=== PATIENT | male | born 1975 | race Caucasian/White ===

== ENCOUNTER 2016-08-09 18:59 | Outpatient (CLI) | payer OTHER ==
[2015-08-16 09:26] VITALS: BMI 31.4
[2016-08-09 19:18] LABS: BILIRUBIN,URINE 1+ (NEGATIVE); KETONES,URINE Trace (NEGATIVE); LEUKOCYTE ESTERASE ,URINE Negative (NEGATIVE); NITRITE,URINE Negative (NEGATIVE); PROTEIN,URINE Negative (NEGATIVE); URINE, BLOOD Negative (NEGATIVE)
[2016-08-09 19:19] LABS: ADD URINE MICROSCOPIC NO
== END 2016-08-09 19:00 | disposition home or self-care (01) ==
LOC: NONPT 18:59
PROVIDERS: ATTEND Physician Assistant
DX: Z51.81 Encounter for therapeutic drug level monitoring (principal); F29 Unspecified psychosis not due to a substance or known physiological condition; R46.89 Other symptoms and signs involving appearance and behavior; R32 Unspecified urinary incontinence; Z79.899 Other long term (current) drug therapy
CPT/HCPCS: 81001

== ENCOUNTER 2016-12-15 15:20 | Outpatient (CLI) ==
[2015-08-16 09:26] VITALS: BMI 31.4
--- NOTE | 2016-12-15 15:51 | DI ---
EXAM: Right foot three view HISTORY: Right foot pain COMPARISON: None FINDINGS: No fracture or dislocation. Joint spaces are maintained. There is surgical hardware in t he distal tibia that is poorly visualized. There is osseous bridging of the distal tibia and fibula , poorly visualized. There dorsal soft tissue swelling about the forefoot. IMPERSSION: 1. No fracture or dislocation. 2. Dorsal soft tissue swelling about the forefoot
== END 2016-12-15 15:21 | disposition home or self-care (01) ==
LOC: RAD 15:20
PROVIDERS: ATTEND Physician Assistant
DX: M79.671 Pain in right foot (principal)

== ENCOUNTER 2017-03-23 16:15 | Inpatient (IN) | payer OTHER ==
[2017-03-23 17:24] LABS: BASOPHILS % (AUTO) 0.1 % (0.0-3.0); HEMATOCRIT 33.9 % (42.0-52.0); HEMOGLOBIN 11.4 g/dl (14.0-18.0); IMMATURE GRANULOCYTE % (AUTO) 0.4 % (0.0-5.0); LYMPHOCYTES # (AUTO) 3.3 K/uL (0.60-3.4); LYMPHOCYTES % (AUTO) 33.9 (10.0-50.0); MEAN CORPUSCULAR HEMOGLOBIN 31.8 pg (27.0-31.0); MEAN CORPUSCULAR HGB CONC 33.6 (31.8-35.4); MEAN CORPUSCULAR VOLUME 94.7 fl (80.0-94.0); MONOCYTES # (AUTO) 1.5 K/uL (0.4-2.0); MONOCYTES % (AUTO) 15.5 (0-10); NEUTROPHILS # (AUTO) 4.9 K/ul (2.0-6.9); NEUTROPHILS % (AUTO) 50.1; PLATELET COUNT 74 10^3/uL (140-440); RED BLOOD COUNT 3.58 10^6/ul (4.70-6.10); WHITE BLOOD COUNT 9.68 K/ul (4.2-10.2)
[2017-03-23] MEDS ORDERED: SOLU-MEDROL 125 MG IVP STA (17:51)
--- NOTE | 2017-03-23 17:55 | ED.PDOC ---
General ED Provider: Dr. DAVID NAPIER Chief Complaint: Facial Injury Stated Complaint: facial rash/edea right sided Time Seen by Physician: 16:30 (see photos) Mode of Arrival: Walk-In Information Source: Assisted Living Exam Limitations: No limitations Primary Care Provider: RON TOWNSEND Nursing and Triage Documentation Reviewed and Agree: Yes Review of Systems - Review Of Systems Constitutional: Reports: Malaise Eyes: Reports: No symptoms Ears, Nose, Mouth, Throat: Reports: No symptoms Respiratory: Reports: No symptoms Cardiac: Reports: No symptoms GI: Reports: No symptoms : Reports: No symptoms Musculoskeletal: Reports: No symptoms Skin: Reports: Rash (face see photos) Neurological: Reports: No symptoms Endocrine: Reports: No symptoms Hematologic/Lymphatic: Reports: No symptoms All Other Systems: Reviewed and Negative Past Medical History - Past Medical History Endocrine: Reports: None Cardiovascular: Reports: None Respiratory: Reports: None Hematological: Reports: None Gastrointestinal: Reports: None Genitourinary: Reports: None Neuro/Psych: Reports: None, Other (MENTAL RETARDATION) Musculoskeletal: Reports: None Cancer: Reports: None - Surgical History General Surgical History: Reports: Unknown - Family History Family History: Reports: Unknown - Social History Smoking Status: Never smoker Hx Substance Use: No Alcohol Screening: None Physical Exam - Physical Exam Appearance: Well-appearing, No pain distress, Well-nourished Eyes: YOLI, EOMI, Conjunctiva clear ENT: Ears normal, Nose normal, Oropharynx normal Respiratory: Airway patent, Breath sounds clear, Breath sounds equal, Respirations nonlabored Cardiovascular: RRR, Pulses normal, No rub, No murmur GI/: Soft, Nontender, No masses, Bowel sounds normal, No Organomegaly Musculoskeletal: Normal strength, ROM intact, No edema, No calf tenderness Skin: Warm, Dry (rash rightsided face ) Neurological: Sensation intact, Motor intact, Reflexes intact, Cranial nerves intact, Alert, Oriented Psychiatric: Affect appropriate, Mood appropriate Physician Notification - Case Discussed Physician Notified: cuco Time of Notification: 17:54 Admit To: Inpatient Critical Care Note - Critical Care Note Total Time (mins): 0 Course - Course Hematology/Chemistry: 03/23/17 17:18 Orders, Labs, Meds: Lab Review 03/23/17 17:18 WBC 9.68 RBC 3.58 L Hgb 11.4 L Hct 33.9 L MCV 94.7 H MCH 31.8 H MCHC 33.6 RDW Coeff of [place] 14.0 Plt Count 74 L Immature Gran % (Auto) 0.4 Neut % (Auto) 50.1 Lymph % (Auto) 33.9 [place] % (Auto) 15.5 H Eos % (Auto) 0.0 Baso % (Auto) 0.1 Immature Gran # (Auto) 0.0 Neut # 4.9 Lymph # 3.3 [place] # 1.5 Eos # 0.0 Baso # 0.0 Lactic Acid 17.4 Orders Category Date Time Status PLACE PATIENT OBSERVATION .TO [facility] (MONITORED BED ADMISSION 03/23/17 17: 49 Ordered ) ACTIVITY .Complete BR CARE 03/23/17 17:49 Ordered INTAKE & OUTPUT Q8HR CARE 03/23/17 17:49 Ordered TELEMETRY MONITORING TELE CARE 03/23/17 17:50 Ordered VITAL SIGNS Q8 CARE 03/23/17 17:49 Ordered BLOOD CULTURE Stat LAB 03/23/17 17:18 Ordered CBC W/ AUTO DIFF DAILY@0600 LAB 03/24/17 06:00 Ordered CBC W/ AUTO DIFF DAILY@0600 LAB 03/25/17 06:00 Ordered CBC W/ AUTO DIFF DAILY@0600 LAB 03/26/17 06:00 Ordered CBC W/ AUTO DIFF DAILY@0600 LAB 03/27/17 06:00 Ordered CBC W/ AUTO DIFF DAILY@0600 LAB 03/28/17 06:00 Ordered CBC W/ AUTO DIFF DAILY@0600 LAB 03/29/17 06:00 Ordered CBC W/ AUTO DIFF DAILY@0600 LAB 03/30/17 06:00 Ordered CBC W/ AUTO DIFF DAILY@0600 LAB 03/31/17 06:00 Ordered CBC W/ AUTO DIFF DAILY@0600 LAB 04/01/17 06:00 Ordered CBC W/ AUTO DIFF DAILY@0600 LAB 04/02/17 06:00 Ordered CBC W/ AUTO DIFF DAILY@0600 LAB 04/03/17 06:00 Ordered CBC W/ AUTO DIFF DAILY@0600 LAB 04/04/17 06:00 Ordered CBC W/ AUTO DIFF DAILY@0600 LAB 04/05/17 06:00 Ordered CBC W/ AUTO DIFF DAILY@0600 LAB 04/06/17 06:00 Ordered CBC W/ AUTO DIFF DAILY@0600 LAB 04/07/17 06:00 Ordered CBC W/ AUTO DIFF DAILY@0600 LAB 04/08/17 06:00 Ordered CBC W/ AUTO DIFF DAILY@0600 LAB 04/09/17 06:00 Ordered CBC W/ AUTO DIFF DAILY@0600 LAB 04/10/17 06:00 Ordered CBC W/ AUTO DIFF DAILY@0600 LAB 04/11/17 06:00 Ordered CBC W/ AUTO DIFF DAILY@0600 LAB 04/12/17 06:00 Ordered CBC W/ AUTO DIFF Stat LAB 03/23/17 17:18 Completed COMPREHENSIVE METABOLIC PANEL DAILY@0600 LAB 03/24/17 06:00 Ordered COMPREHENSIVE METABOLIC PANEL DAILY@0600 LAB 03/25/17 06:00 Ordered COMPREHENSIVE METABOLIC PANEL DAILY@0600 LAB 03/26/17 06:00 Ordered COMPREHENSIVE METABOLIC PANEL DAILY@0600 LAB 03/27/17 06:00 Ordered COMPREHENSIVE METABOLIC PANEL DAILY@0600 LAB 03/28/17 06:00 Ordered COMPREHENSIVE METABOLIC PANEL DAILY@0600 LAB 03/29/17 06:00 Ordered COMPREHENSIVE METABOLIC PANEL DAILY@0600 LAB 03/30/17 06:00 Ordered COMPREHENSIVE METABOLIC PANEL DAILY@0600 LAB 03/31/17 06:00 Ordered COMPREHENSIVE METABOLIC PANEL DAILY@0600 LAB 04/01/17 06:00 Ordered COMPREHENSIVE METABOLIC PANEL DAILY@0600 LAB 04/02/17 06:00 Ordered COMPREHENSIVE METABOLIC PANEL DAILY@0600 LAB 04/03/17 06:00 Ordered COMPREHENSIVE METABOLIC PANEL DAILY@0600 LAB 04/04/17 06:00 Ordered COMPREHENSIVE METABOLIC PANEL DAILY@0600 LAB 04/05/17 06:00 Ordered COMPREHENSIVE METABOLIC PANEL DAILY@0600 LAB 04/06/17 06:00 Ordered COMPREHENSIVE METABOLIC PANEL DAILY@0600 LAB 04/07/17 06:00 Ordered COMPREHENSIVE METABOLIC PANEL DAILY@0600 LAB 04/08/17 06:00 Ordered COMPREHENSIVE METABOLIC PANEL DAILY@0600 LAB 04/09/17 06:00 Ordered COMPREHENSIVE METABOLIC PANEL DAILY@0600 LAB 04/10/17 06:00 Ordered COMPREHENSIVE METABOLIC PANEL DAILY@0600 LAB 04/11/17 06:00 Ordered COMPREHENSIVE METABOLIC PANEL DAILY@0600 LAB 04/12/17 06:00 Ordered COMPREHENSIVE METABOLIC PANEL Stat LAB 03/23/17 17:18 Received LACTIC ACID Stat LAB 03/23/17 17:18 Received PROCALCITONIN Stat LAB 03/23/17 17:18 Received Ceftriaxone Sodium [Rocephin] 1 gm MEDS 03/24/17 09:00 Ordered 0.9 % Sodium Chloride [Sodium Chloride] 50 ml IV DAILY Diazepam [Valium] MEDS 03/23/17 21:00 Ordered 2 mg PO TID Divalproex Sodium [Depakote] MEDS 03/23/17 21:00 Ordered 500 mg PO BID Methylprednisolone Sod Succ/Pf [Solu-Medrol 125 mg] MEDS 03/23/17 17:51 Stat 80 mg IVP ONCE STA Sodium Chloride 0.9% [Sodium Chloride] 1,000 ml MEDS 03/23/17 18:00 Ordered IV 75 mls/hr Vancomycin HCl [Vancomycin] 1 gm MEDS 03/24/17 09:00 Ordered 0.9 % Sodium Chloride [Sodium Chloride] [address] HEAD W/O CONTRAST Stat RADS 03/23/17 17:[address] MAXILLOFACIAL W/O CONTRAST Stat RADS 03/23/17 17:30 Ordered Medications Generic Name Dose Route Start Last Admin Trade Name Freq PRN Reason Stop Dose Admin Diazepam 2 mg 03/23/17 21:00 Valium PO TID FILOMENA Divalproex Sodium 500 mg 03/23/17 21:00 Depakote PO BID FILOMENA Ceftriaxone Sodium 1 gm/ 50 mls @ 75 mls/hr 03/24/17 09:00 Sodium Chloride IV DAILY FILOMENA Sodium Chloride 1,000 mls @ 75 mls/hr 03/23/17 18:00 Sodium Chloride IV .[id number] FILOMENA Vancomycin HCl 1 gm/ Sodium 250 mls @ 250 mls/hr 03/24/17 09:00 Chloride IV DAILY FILOMENA Discontinued Medications Generic Name Dose Route Start Last Admin Trade Name Freq PRN Reason Stop Dose Admin Methylprednisolone Sodium Succinate 80 mg 03/23/17 17:51 Solu-Medrol 125 Mg IVP 03/23/17 17:52 ONCE STA Vital Signs: Temp Pulse Resp BP Pulse Ox 03/23/17 16:23 98.5 F 112 H 24 122/83 98 Departure - Departure Time of Disposition: 17:55 Disposition: ADMITTED INPATIENT Discharge Problem: Cellulitis of face Instructions: Cellulitis (ED) Condition: Good Pt referred to PMD for follow-up: Yes Allergies/Adverse Reactions: Allergies No Known Allergies Allergy (Verified 03/23/17 16:26) Home Medications: Ambulatory Orders Citalopram Hydrobromide [Celexa] 20 mg PO DAILY 03/31/15 Divalproex Sodium 500 mg PO BID 03/31/15 Docusate Sodium [Colace] 200 mg PO BEDTIME 03/31/15 Ranitidine HCl [Zantac] 150 mg PO BID 03/31/15 Benztropine Mesylate 0.5 mg PO BID 03/23/17 Diazepam [Valium] 2 mg PO TID 03/23/17 Ziprasidone HCl [Geodon] 40 mg PO BID 03/23/17
--- NOTE | 2017-03-23 18:14 | CT ---
Exam: CT brain without contrast Clinical indication: Headache. Comparison: 09/17/2012. TECHNIQUE: Axial unenhanced CT images from the skull base through the brain were obtained. Coronal and sagital reformats were performed. Findings: There is no evidence of intra or extra-axial hemorrhage. There is motion artifact hindering accurate assessment of fine detail.There is no evidence of mass, infarct or midline shift. The ventricles and basilar cisterns are within normal limits. There are soft tissue changes within the right maxillary sinus suggesting chronic maxillary sinusiti s. The remainder of the visualized paranasal sinuses and mastoid air cells are clear. The visualized bony structures are unremarkable. Impression: 1. No definite acute intracranial abnormality. 2. Findings suggest chronic right maxillary sinusitis.
--- NOTE | 2017-03-23 18:21 | CT ---
Exam: CT maxillofacial/paranasal sinuses. linical indication: Redness to right hand with pain. TECHNIQUE: Axial unenhanced CT images through the facial bones/paranasal sinus region were obtained followed by coronal and sagittal reformats. Findings: The mandible is intact. The temporomandibular joints are properly situated. The bilateral pterygoid plates are intact. The maxilla is intact. The bilateral orbital rims are intact. The bilateral zygomatic arches are i ntact. The visualized portions of the cranial vault are intact. There is mucosal thickening involving the right maxillary sinus suggesting chronic right maxillary s inusitis. Otherwise, the paranasal sinuses and mastoid air cells are clear. There is soft tissue swelling on the right face near the right orbit. This could represent periorbi sindhu cellulitis. There is no evidence of orbital cellulitis. Otherwise, the visualized soft tissues are grossly unremarkable. Impression: 1. No acute facial fracture. 2. No evidence of orbital cellulitis. 3. Soft tissue swelling within the vicinity of the right thigh suggesting periorbital cellulitis. 4. Right maxillary chronic sinusitis.
[2017-03-23 18:29] LABS: ALBUMIN/GLOBULIN RATIO 0.77; ANION GAP 20.9; BILIRUBIN,TOTAL 0.6 mg/dL (0.00-1.20); BUN/CREATININE RATIO 16.21; CREATININE 0.74 mg/dL (0.60-1.10); POTASSIUM 3.9 mmol/L (3.5-5.1); TOTAL PROTEIN 6.9 g/dL (6.4-8.2)
[2017-03-23 21:46] VITALS: BMI 24.7
[2017-03-23] MEDS ORDERED: DEPAKOTE ONE (22:43)
[2017-03-23] MEDS: VALIUM PO SCH (22:48)
[2017-03-23] MEDS: DEPAKOTE PO SCH (23:07)
[2017-03-24 06:07] LABS: BASOPHILS % (AUTO) 0.1 % (0.0-3.0); HEMATOCRIT 32.8 % (42.0-52.0); HEMOGLOBIN 11.1 g/dl (14.0-18.0); IMMATURE GRANULOCYTE % (AUTO) 0.4 % (0.0-5.0); LYMPHOCYTES # (AUTO) 1.9 K/uL (0.60-3.4); MEAN CORPUSCULAR HEMOGLOBIN 31.3 pg (27.0-31.0); MEAN CORPUSCULAR HGB CONC 33.8 (31.8-35.4); MEAN CORPUSCULAR VOLUME 92.4 fl (80.0-94.0); MONOCYTES # (AUTO) 0.6 K/uL (0.4-2.0); MONOCYTES % (AUTO) 6.7 (0-10); NEUTROPHILS # (AUTO) 6.5 K/ul (2.0-6.9); NEUTROPHILS % (AUTO) 71.8; PLATELET COUNT 73 10^3/uL (140-440); RED BLOOD COUNT 3.55 10^6/ul (4.70-6.10); WHITE BLOOD COUNT 9.08 K/ul (4.2-10.2)
[2017-03-24 06:27] LABS: ALBUMIN 2.7 g/dL (3.4-5.0); ALBUMIN/GLOBULIN RATIO 0.73; ANION GAP 16.5; BILIRUBIN,TOTAL 0.46 mg/dL (0.00-1.20); BUN/CREATININE RATIO 30.76; CALCIUM 9.3 mg/dL (8.2-10.2); CREATININE 0.52 mg/dL (0.60-1.10); POTASSIUM 4.5 mmol/L (3.5-5.1); TOTAL PROTEIN 6.4 g/dL (6.4-8.2)
[2017-03-24] MEDS: SODIUM CHLORIDE 1,000 ML IV SCH (06:27)
[2017-03-24] MEDS: VALIUM PO SCH ×5 (08:49→21:17)
[2017-03-24] MEDS: DEPAKOTE PO SCH ×4 (08:49→21:16)
[2017-03-24] MEDS: ROCEPHIN 1 GM in SODIUM CHLORIDE 50 ML IV SCH (08:53)
[2017-03-24] MEDS ORDERED: VANCOMYCIN 1 GM in SODIUM CHLORIDE 250 ML IV SCH (09:00)
[2017-03-24] MEDS ORDERED: VANCOMYCIN 1.5 GM in SODIUM CHLORIDE 500 ML IV SCH (09:00)
[2017-03-24] MEDS: VANCOMYCIN 1.5 GM in SODIUM CHLORIDE 500 ML IV SCH ×2 (10:20→20:43)
[2017-03-24] MEDS: CELEXA PO SCH (17:17)
[2017-03-24] MEDS ORDERED: ZANTAC ONE (20:01)
[2017-03-24] MEDS ORDERED: COGENTIN ONE ×2 (20:01→20:47)
[2017-03-24] MEDS: ZANTAC PO SCH ×3 (20:40→21:17)
[2017-03-24] MEDS: COLACE PO SCH ×3 (20:40→21:16)
[2017-03-24] MEDS: ZIPRASIDONE HCL 40 MG PO SCH ×3 (20:41→21:17)
[2017-03-24] MEDS: BENZTROPINE MESYLATE 0.5 MG PO SCH ×3 (20:41→21:16)
[2017-03-25] MEDS: SODIUM CHLORIDE 1,000 ML IV SCH ×2 (02:29→14:49)
[2017-03-25 07:19] LABS: BASOPHILS % (AUTO) 0.2 % (0.0-3.0); HEMATOCRIT 30.9 % (42.0-52.0); HEMOGLOBIN 10.5 g/dl (14.0-18.0); IMMATURE GRANULOCYTE % (AUTO) 0.5 % (0.0-5.0); LYMPHOCYTES # (AUTO) 2.8 K/uL (0.60-3.4); LYMPHOCYTES % (AUTO) 31.6 (10.0-50.0); MEAN CORPUSCULAR HEMOGLOBIN 31.3 pg (27.0-31.0); MEAN CORPUSCULAR VOLUME 92.2 fl (80.0-94.0); MONOCYTES % (AUTO) 11.3 (0-10); NEUTROPHILS # (AUTO) 4.9 K/ul (2.0-6.9); NEUTROPHILS % (AUTO) 56.4; PLATELET COUNT 68 10^3/uL (140-440); RED BLOOD COUNT 3.35 10^6/ul (4.70-6.10); WHITE BLOOD COUNT 8.74 K/ul (4.2-10.2)
[2017-03-25 07:35] LABS: ALBUMIN 2.7 g/dL (3.4-5.0); ALBUMIN/GLOBULIN RATIO 0.77; ANION GAP 14.1; BILIRUBIN,TOTAL 0.49 mg/dL (0.00-1.20); BUN/CREATININE RATIO 15.87; CALCIUM 8.8 mg/dL (8.2-10.2); CREATININE 0.63 mg/dL (0.60-1.10); POTASSIUM 4.1 mmol/L (3.5-5.1); TOTAL PROTEIN 6.2 g/dL (6.4-8.2)
[2017-03-25] MEDS: ZANTAC PO SCH ×2 (09:30→17:55)
[2017-03-25] MEDS: DEPAKOTE PO SCH ×2 (09:30→20:47)
[2017-03-25] MEDS: ROCEPHIN 1 GM in SODIUM CHLORIDE 50 ML IV SCH (09:30)
[2017-03-25] MEDS: COGENTIN PO SCH ×2 (09:31→20:49)
[2017-03-25] MEDS: CELEXA PO SCH (09:31)
[2017-03-25] MEDS: ZIPRASIDONE HCL 40 MG PO SCH ×2 (10:26→21:27)
[2017-03-25] MEDS: VANCOMYCIN 1.5 GM in SODIUM CHLORIDE 500 ML IV SCH ×2 (10:26→20:46)
[2017-03-25] MEDS: VALIUM PO SCH ×3 (10:27→20:47)
[2017-03-25] MEDS ORDERED: TOBREX 0.3% OP ONE (11:25)
[2017-03-25] MEDS ORDERED: SOLU-MEDROL 40 MG IVP STA (12:07)
[2017-03-25] MEDS: TOBREX 0.3% OP SCH ×3 (14:48→20:49)
[2017-03-25] MEDS: COLACE PO SCH (20:47)
[2017-03-26] MEDS: TOBREX 0.3% OP SCH ×6 (02:28→20:41)
[2017-03-26] MEDS: ZANTAC PO SCH ×2 (05:42→16:09)
[2017-03-26 08:54] LABS: BASOPHILS % (AUTO) 0.2 % (0.0-3.0); HEMATOCRIT 31.3 % (42.0-52.0); HEMOGLOBIN 10.7 g/dl (14.0-18.0); IMMATURE GRANULOCYTE % (AUTO) 0.3 % (0.0-5.0); LYMPHOCYTES # (AUTO) 2.2 K/uL (0.60-3.4); LYMPHOCYTES % (AUTO) 34.6 (10.0-50.0); MEAN CORPUSCULAR HEMOGLOBIN 31.8 pg (27.0-31.0); MEAN CORPUSCULAR HGB CONC 34.2 (31.8-35.4); MEAN CORPUSCULAR VOLUME 93.2 fl (80.0-94.0); MONOCYTES # (AUTO) 0.5 K/uL (0.4-2.0); MONOCYTES % (AUTO) 7.7 (0-10); NEUTROPHILS # (AUTO) 3.6 K/ul (2.0-6.9); NEUTROPHILS % (AUTO) 57.2; PLATELET COUNT 76 10^3/uL (140-440); RED BLOOD COUNT 3.36 10^6/ul (4.70-6.10); WHITE BLOOD COUNT 6.36 K/ul (4.2-10.2)
[2017-03-26] MEDS: ROCEPHIN 1 GM in SODIUM CHLORIDE 50 ML IV SCH (09:00)
[2017-03-26] MEDS: COGENTIN PO SCH ×2 (09:00→20:46)
[2017-03-26] MEDS: CELEXA PO SCH (09:00)
[2017-03-26] MEDS: VALIUM PO SCH ×3 (09:01→20:46)
[2017-03-26] MEDS: DEPAKOTE PO SCH ×2 (09:01→20:45)
[2017-03-26] MEDS: ZIPRASIDONE HCL 40 MG PO SCH ×2 (09:10→20:45)
[2017-03-26 09:38] LABS: ALBUMIN 2.5 g/dL (3.4-5.0); ALBUMIN/GLOBULIN RATIO 0.71; ANION GAP 14.8; BILIRUBIN,TOTAL 0.36 mg/dL (0.00-1.20); BUN/CREATININE RATIO 17.74; CALCIUM 8.9 mg/dL (8.2-10.2); CREATININE 0.62 mg/dL (0.60-1.10); POTASSIUM 3.8 mmol/L (3.5-5.1)
[2017-03-26 17:45] VITALS: TEMP 98.2
[2017-03-26] MEDS: VANCOMYCIN 1 GM in SODIUM CHLORIDE 250 ML IV SCH (20:41)
[2017-03-26] MEDS: COLACE PO SCH (20:45)
[2017-03-27] MEDS: SODIUM CHLORIDE 1,000 ML IV SCH ×2 (02:30→08:35)
[2017-03-27] MEDS: TOBREX 0.3% OP SCH ×4 (02:51→12:00)
[2017-03-27] MEDS: ZANTAC PO SCH (05:56)
[2017-03-27 06:16] VITALS: BP 124/71
[2017-03-27 06:49] LABS: BASOPHILS % (AUTO) 0.5 % (0.0-3.0); EOSINOPHILS % (AUTO) 0.2 % (0.0-7.0); HEMOGLOBIN 10.7 g/dl (14.0-18.0); IMMATURE GRANULOCYTE % (AUTO) 0.3 % (0.0-5.0); LYMPHOCYTES # (AUTO) 3.3 K/uL (0.60-3.4); LYMPHOCYTES % (AUTO) 52.4 (10.0-50.0); MEAN CORPUSCULAR HEMOGLOBIN 31.6 pg (27.0-31.0); MEAN CORPUSCULAR HGB CONC 33.4 (31.8-35.4); MEAN CORPUSCULAR VOLUME 94.4 fl (80.0-94.0); MONOCYTES # (AUTO) 0.6 K/uL (0.4-2.0); MONOCYTES % (AUTO) 9.1 (0-10); NEUTROPHILS # (AUTO) 2.4 K/ul (2.0-6.9); NEUTROPHILS % (AUTO) 37.5; PLATELET COUNT 93 10^3/uL (140-440); RED BLOOD COUNT 3.39 10^6/ul (4.70-6.10); WHITE BLOOD COUNT 6.38 K/ul (4.2-10.2)
[2017-03-27 07:05] LABS: ALBUMIN 2.4 g/dL (3.4-5.0); ALBUMIN/GLOBULIN RATIO 0.71; ANION GAP 16.4; BILIRUBIN,TOTAL 0.31 mg/dL (0.00-1.20); BUN/CREATININE RATIO 17.74; CALCIUM 8.9 mg/dL (8.2-10.2); CREATININE 0.62 mg/dL (0.60-1.10); POTASSIUM 4.4 mmol/L (3.5-5.1); TOTAL PROTEIN 5.8 g/dL (6.4-8.2)
[2017-03-27] MEDS: VANCOMYCIN 1.5 GM in SODIUM CHLORIDE 500 ML IV SCH (08:34)
[2017-03-27] MEDS: CELEXA PO SCH (08:50)
[2017-03-27] MEDS: VANCOMYCIN 1 GM in SODIUM CHLORIDE 250 ML IV SCH (08:51)
[2017-03-27] MEDS: COGENTIN PO SCH (08:51)
[2017-03-27] MEDS: DEPAKOTE PO SCH (08:51)
[2017-03-27] MEDS: VALIUM PO SCH (08:51)
[2017-03-27] MEDS: ZIPRASIDONE HCL 40 MG PO SCH (08:59)
--- NOTE | 2017-03-27 11:36 | HP ---
DATE OF SERVICE: 03/23/17 - The patient is seen and examined in the emergency room with Dr. Uriostegui. CHIEF COMPLAINT: Right-sided facial pain and redness. HISTORY OF PRESENT ILLNESS: This is a 42-year-old male with developmental delay and lives at the [facility], went to see PMD, Nemo Curtis for right facial cellulitis and redness. The patient was sent here for evaluation. The patient's right side of face is red, swelling mainly around the right eye and right upper jaw. At that time, the patient was brought to the emergency room. White count was normal. In view of the facial cellulitis, redness, the patient was admitted to the hospital for IV antibiotics and treatment. REVIEW OF SYSTEMS: (difficult to obtain from patient because of the patient's condition and was obtained from the patient's helpers) CONSTITUTIONAL: No fever, no chills. HEENT: Right facial swelling and redness. Right eye with matting and drainage. ENDOCRINE: No weight gain; no weight loss. CVS: No chest pain. No PND, no orthopnea. No shortness of breath. No PND, no orthopnea. RESPIRATORY: No cough, no congestion. No hemoptysis. GI: No nausea, no vomiting. No abdominal pain. No melena. : No hematuria. No polyuria. MUSCULOSKELETAL: No joint swelling. PSYCHIATRIC: Not anxious. No depression. No suicidal thoughts. No homicidal thoughts. SKIN: Intact, no open lesions. PAST MEDICAL HISTORY: 1. Aphasia 2. Allergic rhinitis 3. GERD 4. Osteoarthritis 5. Anxiety 6. Developmental delay 7. Congenital anomalies PAST SURGICAL HISTORY: 1. Fracture left index finger 2. Bilateral inguinal hernia repair 3. Lap holley 4. 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 No smoking. No illicit drug use. No alcohol use. FAMILY HISTORY: Not significant. MEDICATIONS: (At [facility]) 1. Colace 2. Zantac 3. Divalproex 4. Celexa 5. Valium 6. Geodon 7. Benztropine ALLERGIES: NKDA PHYSICAL EXAMINATION: V/S: BP 122/83, respiratory rate 24, heart rate 112, temperature 98.5, saturation 98. Right facial redness, swelling with right upper eyelid and lower eyelid is swollen. Tenderness to touch. HEENT: Atraumatic, normocephalic. No scleral icterus. NECK: Supple. No JVD, no bruit. No lymphadenopathy. No thyromegaly. HEART: S1, S2 normal. No murmur. No cyanosis or clubbing. No ascites. LUNGS: Clear to auscultation. No rales or rhonchi. ABDOMEN: Soft, nontender. Bowel sounds are active. No CVA tenderness. No rigidity or guarding. EXTREMITIES: No cyanosis, clubbing or pedal edema. MUSCULOSKELETAL: Normal joints, no swelling. NEUROLOGIC: The patient is awake, alert, not oriented, does not communicate. SKIN: Intact; no open lesions. LYMPHATIC: No lymph nodes palpable. LABS: Sodium 141, potassium 3.9, chloride 108, bicarb 16, BUN 12, creatinine 0.74. White count 9.68, hemoglobin 11.4, hematocrit 33.9, platelet count 74. ASSESSMENT: 1. RIGHT FACIAL CELLULITIS 2. THROMBOCYTOPENIA 3. ANXIETY 4. DEVELOPMENTAL DELAY 5. HISTORY OF SEIZURE DISORDER 6. DEPRESSION PLAN: 1. Admit the patient to the regular floor. 2. Continue the home medication, Rocephin and Vancomycin daily. 3. I will follow with the patient in daily rounds. TIME SPENT: MORE THAN 70 minutes MTDD
--- NOTE | 2017-03-27 11:55 | PN ---
DATE OF SERVICE: 03/24/17 SUBJECTIVE: Admitted with right facial cellulitis and has been on antibiotics. The patient has very much anxiety when a new person approaches and he gets really restless. He does not communicate well. Pain and redness is better. Did not urinate so far after admission. REVIEW OF SYSTEMS: CONSTITUTIONAL: No fever, no chills. HEENT: Right facial swelling and redness. Right eye matting and drainage. ENDOCRINE: No weight gain, no weight loss. CVS: No angina symptoms. No CHF symptoms. No palpitations. No atypical chest pain for CAD. No shortness of breath. No PND, no orthopnea. RESPIRATORY: No cough, no hemoptysis. GI: No nausea, no vomiting. No abdominal pain. : No hematuria. No polyuria. MUSCULOSKELETAL:. No joint swelling. PSYCHIATRIC: Anxious. No depression. No suicidal thoughts. No homicidal thoughts. SKIN: Intact. No rash. PHYSICAL EXAMINATION: V/S: BP 115/74, respiratory rate 24, heart rate 86, temperature 98.5. HEENT: Normocephalic, atraumatic. Mucosa dry, pallor positive. No icterus. Right facial redness. Swelling is better. Some tenderness. The patient does wince when I touch face. NECK: Supple. No JVD, no carotid bruit. No lymphadenopathy. LUNGS: Clear to auscultation. No rales or rhonchi. HEART: S1, S2 normal. No S3. No murmur, gallop or regurgitation. ABDOMEN: Soft, nontender. Bowel sounds active. No rigidity. No rebound or guarding. No CVA tenderness. EXTREMITIES: No clubbing, cyanosis or pedal edema. MUSCULOSKELETAL: No joint swelling. NEUROLOGIC: Awake, alert, moving all four extremities. Does not communicate secondary to aphasia. LYMPHATIC: No lymph nodes palpable. SKIN: Intact. LABS: White count is 9.08, hemoglobin 11.1, hematocrit 32.8, platelet count 73. Sodium 142, potassium 4.5, chloride 106, bicarb 24, BUN 16, creatinine 0.52, glucose 148. ASSESSMENT: 1. Right facial cellulitis 2. Anemia 3. Developmental delay 4. Seizure disorder 5. Anxiety PLAN: 1. Continue Vancomycin and Rocephin 2. Will change admission to Regular admission as the patient still has persistent redness and swelling of the face, which will need further antibiotic treatment. TIME SPENT: More than 30 minutes MTDD
[2017-03-27] MEDS: ROCEPHIN 1 GM in SODIUM CHLORIDE 50 ML IV SCH (11:58)
[2017-03-27] MEDS ORDERED: HUMALOG SUBCUT PRN (12:30)
--- NOTE | 2017-03-27 12:37 | PN ---
DATE OF SERVICE: 03/26/17 SUBJECTIVE: Admitted with right-sided facial cellulitis and redness. The patient has extreme anxiety and is scared of strangers. Redness is better but still has puffiness around right side of face, matting of right eye. No fever, no chills. The patient's caregiver is in the room. REVIEW OF SYSTEMS: CONSTITUTIONAL: No fever, no chills. HEENT: Right facial swelling is still there; redness is better. Right eye matting. ENDOCRINE: No weight gain, no weight loss. CVS: No angina symptoms. No CHF symptoms. No palpitations. No atypical chest pain for CAD. No shortness of breath. No PND, no orthopnea. RESPIRATORY: No cough, no hemoptysis. GI: No nausea, no vomiting. No abdominal pain. : No hematuria. No polyuria. MUSCULOSKELETAL:. No joint swelling. PSYCHIATRIC: Anxious. No depression. No suicidal thoughts. No homicidal thoughts. SKIN: Intact. No rash. PHYSICAL EXAMINATION: V/S: BP 118/73, respiratory rate 20, heart rate 82, temperature 97.0. HEENT: Normocephalic, atraumatic. Right eye matted with redness. Right maxillary area puffiness is present; no redness. Tender to touch. NECK: Supple. No JVD, no carotid bruit. No lymphadenopathy. LUNGS: Clear to auscultation. No rales or rhonchi. HEART: S1, S2 normal. No S3. No murmur, gallop or regurgitation. ABDOMEN: Soft, nontender. Bowel sounds active. No rigidity. No rebound or guarding. No CVA tenderness. EXTREMITIES: No clubbing, cyanosis or pedal edema. MUSCULOSKELETAL: No joint swelling. NEUROLOGIC: Awake, alert but does not respond to communication as patient has developmental delay and aphasia. LYMPHATIC: No lymph nodes palpable. SKIN: Intact. LABS: White count 3.36, hemoglobin 10.7, hematocrit 31.3, platelet count 76. Sodium 145, potassium 3.8, chloride 109, bicarb 25, BUN 11, creatinine 0.62. ASSESSMENT: 1. RIGHT FACIAL CELLULITIS 2. RIGHT CONJUNCTIVITIS 3. HISTORY OF SEIZURE DISORDER 4. DEVELOPMENTAL DELAY 5. APHASIA 6. ANEMIA 7. THROMBOCYTOPENIA PLAN: 1. Continue Vancomycin and Rocephin 2. Eyedrops 3. Daily I & O's TIME SPENT: More than 35 minutes today ROSEY
--- NOTE | 2017-03-27 13:50 | PN ---
DATE OF SERVICE: 03/25/17 SUBJECTIVE: This patient was admitted with right-sided facial cellulitis and right acute conjuncitivis. Swelling, redness and pain is a little better. The patient has very much high anxiety level and not to be touched by many people at the facility. The workers from [employer] are helping us. REVIEW OF SYSTEMS: CONSTITUTIONAL: No fever, no chills. HEENT: Right-sided facial cellulitis and right eye conjunctivitis, swelling, redness and pain is a little better. ENDOCRINE: No weight gain, no weight loss. CVS: No angina symptoms. No CHF symptoms. No palpitations. No atypical chest pain for CAD. No shortness of breath. No PND, no orthopnea. RESPIRATORY: No cough, no hemoptysis. GI: No nausea, no vomiting. No abdominal pain. : No hematuria. No polyuria. MUSCULOSKELETAL:. No joint swelling. PSYCHIATRIC: Anxious. No depression. No suicidal thoughts. No homicidal thoughts. SKIN: Intact. No rash. PHYSICAL EXAMINATION: V/S: BP 112/70, respiratory rate 20, heart rate 82, temperature 97.0. HEENT: Normocephalic, atraumatic. Mucosa dry. Right eye tenderness and crust present on the eyelids. Swelling and redness is decreased on the upper part of the right maxillary area of the face. Some tenderness is present. He doesn't want me to touch the area. NECK: Supple. No JVD, no carotid bruit. No lymphadenopathy. LUNGS: Clear to auscultation. No rales or rhonchi. HEART: S1, S2 normal. No S3. No murmur, gallop or regurgitation. ABDOMEN: Soft, nontender. Bowel sounds active. No rigidity. No rebound or guarding. No CVA tenderness. EXTREMITIES: No clubbing, cyanosis or pedal edema. MUSCULOSKELETAL: No joint swelling. NEUROLOGIC: Awake, alert, oriented times three. He does not talk. LYMPHATIC: No lymph nodes palpable. SKIN: Intact. LABS: White count 8.74, hemoglobin 10.5, hematocrit 30.9, platelet count 68. Sodium 142, potassium 4.1, chloride 109, bicarb 23, BUN 10, creatinine 0.63. ASSESSMENT: 1. RIGHT FACIAL CELLULITIS/CONJUNCTIVITIS 2. THROMBOCYTOPENIA 3. ANEMIA 4. DEVELOPMENTAL DELAY 5. ANXIETY PLAN: 1. Continue Rocephin and Vancomycin 2. Neomycin, Polymyxin B eyedrops 3. Out of bed to chair 4. Activity as tolerated TIME SPENT: More than 30 minutes MTDD
--- NOTE | 2017-04-10 15:04 | DS ---
DATE OF SERVICE: 03/27/17 FINAL DIAGNOSIS: 1. Right facial cellulitis 2. Redness of the right periorbital cellulitis 3. Right maxillary chronic sinusitis 4. Acute conjunctivitis of the right eye. 5. Developmental delay 6. Legally blind 7. History of fractured tibia and fibula 8. Status post Cholecystectomy 9. Multiple congenital anomalies 10.Anemia, stable DISCHARGE INSTRUCTIONS: Discharge the patient back to the [facility]. Return to see Family Care Provider as soon as possible. Drink lots of water and given Probiotics and yogurt. Continue rest of the home medications. MEDICATIONS AT DISCHARGE: Benztropine Mesylate 0.5mg PO three times a day Celexa 20mg Po daily Valium 2mg PO three times a day Divalproex 500mg PO twice a day Colace 100mg 200mg at bedtime Zantac 150mg twice a day Geodon 40mg twice a day NEW PRESCRIPTIONS: Clindamycin 300mg twice a day for three more days. DIET INSTRUCTIONS: Cardiac and healthy and diabetic diet ACTIVITY: Can participate in the activity at the [facility] SMOKING: Never Smoker DISEASE SPECIFIC EDUCATION: Risk of the right sided facial infection and the brain infection been discussed Antibiotic use and diarrhea been discussed. HOSPITAL COURSE: Jose Hurtado who is a 42 year old male, developmentally delayed came to the Emergency Room and seen by Dr. Uriostegui for the right sided facial cellulitis and the redness and the periorbital cellulitis. The patient was admitted to the hospital and started on the Rocephin and Vancomycin. Hgb was 11.4 which has been stable. CT did not show any cavernous sinus thrombosis or any orbital cellulitis. It was showing just the right periorbital cellulitis and the right cheek inflammation. Gradually the redness and the swelling was getting better. The patient has very much anxiety issue and he doesn't want to be talking to anyone. Very timid. The patient's caregivers were in the hospital and they were helping us a lot. Meanwhile the redness and swelling and pain was getting better. The patient did not have any complication while during the hospital stay. Vancomycin Trough levels being followed. As patient's redness and the patient did get eye drops for the conjunctivitis of the right eye. Gradually both the swelling, redness and cellulitis and the conjunctivitis all got resolved, did not have any problem. Finally sent the patient to [facility]. TIME SPENT: MORE THAN 60 MINUTES MTDD
== END 2017-03-27 13:07 | disposition other institution (70) | DRG 122 ==
LOC: ED 16:15 → MEDSURG B 18:23 → OBSVTOIN 03-24 18:00
PROVIDERS: ADMIT Emergency Medicine; ATTEND Emergency Medicine
DX: H05.011 Cellulitis of right orbit (principal); L54 Erythema in diseases classified elsewhere; J32.0 Chronic maxillary sinusitis; H10.31 Unspecified acute conjunctivitis, right eye; F79 Unspecified intellectual disabilities; F81.9 Developmental disorder of scholastic skills, unspecified; F80.2 Mixed receptive-expressive language disorder; D69.6 Thrombocytopenia, unspecified; D64.9 Anemia, unspecified; Q89.9 Congenital malformation, unspecified; F41.8 Other specified anxiety disorders; G40.909 Epilepsy, unspecified, not intractable, without status epilepticus; H54.8 Legal blindness, as defined in USA; R21 Rash and other nonspecific skin eruption; Z87.81 Personal history of (healed) traumatic fracture; Z79.899 Other long term (current) drug therapy
CPT/HCPCS: 36415; 80053; 80202; 83605; 84145; 85025; 87040; 87081; 96375; 99284

== ENCOUNTER 2017-07-02 12:08 | Outpatient (CLI) ==
[2017-07-02 12:17] LABS: ANISOCYTOSIS NOT PRESENT (NOT PRESENT)
[2017-07-02 12:36] LABS: HEMATOCRIT 35.9 % (42.0-52.0); HEMOGLOBIN 11.9 g/dl (14.0-18.0); MEAN CORPUSCULAR HEMOGLOBIN 32.1 pg (27.0-31.0); MEAN CORPUSCULAR HGB CONC 33.1 (31.8-35.4); MEAN CORPUSCULAR VOLUME 96.8 fl (80.0-94.0); PLATELET COUNT 98 10^3/uL (140-440); RED BLOOD COUNT 3.71 10^6/ul (4.70-6.10); WHITE BLOOD COUNT 6.84 K/ul (4.2-10.2)
[2017-07-03 07:24] LABS: RAPID PLASMA REAGIN Non Reactive (Non Reactive)
== END 2017-07-02 12:09 | disposition home or self-care (01) ==
LOC: LAB 12:08
PROVIDERS: ATTEND Physician Assistant
DX: D64.9 Anemia, unspecified (principal); R63.4 Abnormal weight loss
CPT/HCPCS: 36415; 82607; 82746; 83540; 83550; 84436; 84443; 85007; 85027; 86592

== ENCOUNTER 2017-07-03 11:14 | Outpatient (CLI) ==
--- NOTE | 2017-07-03 12:05 | DI ---
EXAM: PA and lateral views of the chest HISTORY: Anemia COMPARISON: None FINDINGS: The cardiomediastinal silhouette is normal. There is no pneumothorax or pleural effusion. There is no consolidation, nodule or mass. The osseous structures are unremarkable. There is surgi juliana clips noted in the right upper quadrant. IMPRESSION: No acute cardiopulmonary process
--- NOTE | 2017-07-03 12:24 | CT ---
EXAM: CT abdomen pelvis without contrast HISTORY: Weight loss COMPARISON: None TECHNIQUE: Serial axial images of the abdomen pelvis were performed from the lung bases through the inferior pelvis without contrast. These were viewed in multiple planes. FINDINGS: Lung bases are clear. Evaluation is limited due to lack of contrast. The liver is unremarkable. The gallbladder has been resected. The adrenal glands are unremarkable. The kidneys are unremarkable. The spleen is normal. The pancreas is normal. The stomach is mildly distended. Small bowel in the abdomen pelvis demonstrates few scattered distended loops of small bowel with flui d that measure within the upper limits of normal for size. The colon it is unremarkable. The append ix is normal. The urinary bladder is large and distended. There is no layering stone or visualized mass. There is no free air or free fluid in the abdomen or pelvis. The osseous structures demonstrat e mild degenerative disease. IMPRESSION: 1. No acute intra-abdominal or pelvic process to account for patient's symptoms. 2. Large distended urinary bladder with no visualized obstruction. 3. Scattered fluid-filled loops of small bowel are within normal limits for size and may represent n ormal distension versus minimal enteritis.
== END 2017-07-03 11:15 | disposition home or self-care (01) ==
LOC: RAD 11:14
PROVIDERS: ATTEND Physician Assistant
DX: D64.9 Anemia, unspecified (principal); R63.4 Abnormal weight loss

== ENCOUNTER 2017-10-01 17:55 | Emergency (ER) ==
[2017-10-01 18:00] VITALS: BP 150/81; TEMP 97.1; BMI 21.1
--- NOTE | 2017-10-01 18:44 | ED.PDOC ---
General ED Provider: Dr. DAVID NAPIER Chief Complaint: Foot Pain/Injury Stated Complaint: FOOT PAIN LEFT Time Seen by Physician: 18:00 Mode of Arrival: Walk-In Information Source: Other Exam Limitations: No limitations Primary Care Provider: RON TWONSEND Nursing and Triage Documentation Reviewed and Agree: Yes Reviewed sepsis parameters & appropriate labs ordered?: Yes System Inflammatory Response Syndrome: Not Applicable Sepsis Protocol: For patient's 13 years and over: Temp is 96.8 and below OR 101 and greater Pulse >90 BPM Resp >20/minute Acutely Altered Mental Status Are patient's symptoms suggestive of a new infection, such as: -Pneumonia -Skin, Soft Tissue -Endocarditis -UTI -Bone, Joint Infection -Implantable Device -Acute Abdominal Infection -Wound Infection -Meningitis -Blood Stream Catheter Infection -Unknown System Inflammatory Response Syndrome: Not Applicable Musculoskeletal Complaint Exam - Ankle/Foot Complaint/Exam Location of Injury: Reports: Left, Foot (LEFT FOOT IS BRUSED ) Mechanism of Injury: Reports: Trauma Onset/Duration: UNKNOWN NOTICED TODAY Symptoms Are: Reports: Still present Character: Reports: Dull Alleviating: Reports: Rest Aggravating: Reports: None Able to Bear Weight: Yes Associated Signs and Symptoms: Reports: Bruising Achilles Tendon Abnormality: No (WALKING HAS NO ISSUE) Tenderness: Present: Midfoot, Metatarsals Differential Diagnosis: Closed Fracture, Sprain, Strain Review of Systems - Review Of Systems Constitutional: Reports: No symptoms Eyes: Reports: No symptoms Ears, Nose, Mouth, Throat: Reports: No symptoms Respiratory: Reports: No symptoms Cardiac: Reports: No symptoms GI: Reports: No symptoms : Reports: No symptoms Musculoskeletal: Reports: Other (LEFT FOOT BRUSED ) Skin: Reports: No symptoms Neurological: Reports: No symptoms Endocrine: Reports: No symptoms Hematologic/Lymphatic: Reports: No symptoms All Other Systems: Reviewed and Negative Past Medical History - Past Medical History Previously Healthy: Yes Endocrine: Reports: None Cardiovascular: Reports: None Respiratory: Reports: None Hematological: Reports: None Gastrointestinal: Reports: None Genitourinary: Reports: None Neuro/Psych: Reports: None, Other (MENTAL RETARDATION) Musculoskeletal: Reports: None Cancer: Reports: None - Surgical History General Surgical History: Reports: Unknown - Family History Family History: Reports: Unknown - Social History Smoking Status: Never smoker Hx Substance Use: No Alcohol Screening: None - Immunizations Tetanus Shot up to Date: No Physical Exam - Physical Exam Appearance: Well-appearing, No pain distress, Well-nourished Eyes: YOLI, EOMI, Conjunctiva clear ENT: Ears normal, Nose normal, Oropharynx normal Respiratory: Airway patent, Breath sounds clear, Breath sounds equal, Respirations nonlabored Cardiovascular: RRR, Pulses normal, No rub, No murmur GI/: Soft, Nontender, No masses, Bowel sounds normal, No Organomegaly Musculoskeletal: Limited ROM (LEFT FOOT BRUSED SEE PHOTOS) Skin: Warm, Dry, Normal color Neurological: Sensation intact, Motor intact, Reflexes intact, Cranial nerves intact, Alert, Oriented Psychiatric: Affect appropriate, Mood appropriate Critical Care Note - Critical Care Note Total Time (mins): 0 Course - Course Orders, Labs, Meds: Orders Category Date Time Status FOOT, LEFT 3 VIEWS Stat RADS 10/01/17 18:10 Taken Vital Signs: Temp Pulse Resp BP Pulse Ox 10/01/17 17:56 97.1 F L 64 24 150/81 H 98 Departure - Departure Time of Disposition: 18:44 Disposition: HOME SELF-CARE Discharge Problem: Injury of foot Instructions: Metatarsalgia (DC), Arthralgia (ED) Condition: Good Pt referred to PMD for follow-up: Yes IPMP verified?: No Additional Instructions: Please call your Family Physician as soon as possible to schedule a follow-up appointment. Allergies/Adverse Reactions: Allergies No Known Allergies Allergy (Verified 03/23/17 16:26) Home Medications: Ambulatory Orders Citalopram Hydrobromide [Celexa] 20 mg PO DAILY 03/31/15 Divalproex Sodium 500 mg PO BID 03/31/15 Docusate Sodium [Colace] 200 mg PO BEDTIME 03/31/15 Ranitidine HCl [Zantac] 150 mg PO BID 03/31/15 Benztropine Mesylate 0.5 mg PO BID 03/23/17 Diazepam [Valium] 2 mg PO TID 03/23/17 Ziprasidone HCl [Geodon] 40 mg PO BID 03/23/17 Clindamycin HCl [Cleocin HCl] 300 mg PO TID #9 capsule 03/27/17 Insulin Lispro [Humalog] 5 - 15 units SQ AC PRN 03/27/17 Disposition Discussed With: Patient
--- NOTE | 2017-10-01 19:31 | DI ---
EXAM: Three views of the left foot HISTORY: Pain to the second metatarsal. TECHNIQUE: AP, lateral, oblique views of the left foot were obtained. FINDINGS: No acute fractures are seen. There is anatomic alignment. There are no erosions. The so ft tissues are normal. IMPRESSION: No acute fracture dislocation seen within the left foot.
== END 2017-10-01 19:35 | disposition home or self-care (01) ==
LOC: ED 17:55
DX: S90.32XA Contusion of left foot, initial encounter (principal)
CPT/HCPCS: 99282

== ENCOUNTER 2018-01-12 16:47 | Outpatient (CLI) | payer OTHER | END 2018-01-12 17:06 | disposition short-term general hospital (02) | LOC: AMBL 16:47 | PROVIDERS: ATTEND Internal Medicine Geriatric Medicine | DX: R45.6 Violent behavior (principal); F72 Severe intellectual disabilities; F41.9 Anxiety disorder, unspecified ==

== ENCOUNTER 2018-09-29 06:54 | Emergency (ER) ==
[2018-09-29 06:59] VITALS: BP 111/77; TEMP 98.2; BMI 24.5
--- NOTE | 2018-09-29 07:24 | ED.PDOC ---
General ED Provider: Dr. MARIBELL MEDINA Chief Complaint: Head Laceration Stated Complaint: unwitnessed laceration of left temporal scalp,Patient is developmentaly challanged.Apparently no LOC and no seizures. Time Seen by Physician: 07:24 Mode of Arrival: Walk-In Information Source: Patient, Other Exam Limitations: Clinical condition, Other Primary Care Provider: NIC WOODSON Referred to ED by: Other Nursing and Triage Documentation Reviewed and Agree: Yes Does patient meet sepsis criteria?: No System Inflammatory Response Syndrome: Not Applicable Sepsis Protocol: For patient's 13 years and over: Temp is 96.8 and below OR 101 and greater Pulse >90 BPM Resp >20/minute Acutely Altered Mental Status Are patient's symptoms suggestive of a new infection, such as: -Pneumonia -Skin, Soft Tissue -Endocarditis -UTI -Bone, Joint Infection -Implantable Device -Acute Abdominal Infection -Wound Infection -Meningitis -Blood Stream Catheter Infection -Unknown Trauma/Injury Complaint Exam - Head Injury Complaint/Exam Location of Pain: Reports: Left, Scalp Mechanism of Injury: Reports: Trauma Onset/Duration: tonight Symptoms Are: Still present Initial Severity: Mild Current Severity: Mild Character: Reports: Sharp Aggravating: Reports: Other Alleviating: Reports: None Loss of Consciousness: None Cervical Spine Injury Risk Factors: Present: None Related Surgical History: Reports: None Immobilization Removed Post Exam: No Glascow Coma Scale (see protocol): full 15 in developentally challanged patient Focal Weakness: Present: None Focal Sensory Loss: Present: None Gag Reflex Present: Yes Nexus Low Risk Criteria: No post-midline CS tender, No evidence of intoxicat., No Altered LOC, No focal neuro deficit Differential Diagnoses: Trauma, Other Review of Systems - Review Of Systems Constitutional: Reports: No symptoms Eyes: Reports: No symptoms Ears, Nose, Mouth, Throat: Reports: No symptoms Respiratory: Reports: No symptoms Cardiac: Reports: No symptoms GI: Reports: No symptoms : Reports: No symptoms Musculoskeletal: Reports: No symptoms Skin: Reports: Other Neurological: Reports: No symptoms Endocrine: Reports: No symptoms Hematologic/Lymphatic: Reports: No symptoms All Other Systems: Reviewed and Negative Past Medical History - Past Medical History Previously Healthy: Yes Endocrine: Reports: None Cardiovascular: Reports: None Respiratory: Reports: None Hematological: Reports: None Gastrointestinal: Reports: None Genitourinary: Reports: None Neuro/Psych: Reports: None, Other (MENTAL RETARDATION) Musculoskeletal: Reports: None Cancer: Reports: None - Surgical History General Surgical History: Reports: Unknown - Family History Family History: Reports: Unknown - Social History Smoking Status: Never smoker Hx Substance Use: No Alcohol Screening: None Physical Exam - Physical Exam Appearance: Well-nourished Ill-appearing: None Pain Distress: None Eyes: YOLI ENT: Ears normal Neck: Supple Respiratory: Airway patent Cardiovascular: RRR GI/: Soft Musculoskeletal: Normal strength Skin: Warm, Dry Neurological: Sensation intact Procedures - Laceration/Wound Repair No standard instances Wound Description: Stellate (5) Wound Length (cm): 5 cm Wound Width: 0.5 cm Wound Depth: 4 mm Wound Explored: Clean Wound Irrigated: Yes Wound Prep: Betadine Anesthesia: Lidocaine Wound Debrided: Minimal Undermining: Minimal Wound Margins: Flaps aligned Wound Repaired With: Marie Suture Size and Type: 4-0 Ethilon Number of Sutures: 2 (interrupted) Number of Marie: 4 Layer Closure?: No Sterile Dressing Applied?: Yes Critical Care Note - Critical Care Note Total Time (mins): 0 Course - Course Orders, Labs, Meds: Orders Category Date Time Status Lidocaine HCl/Pf [Lidocaine HCl 1% Sdv] MEDS 09/29/18 07:47 Discontinued 5 ml .ROUTE .STK-MED ONE Lidocaine HCl/Pf [Lidocaine HCl 1% Sdv] MEDS 09/29/18 07:44 Stat 5 ml SUBCUT ONCE STA Medications Discontinued Medications Generic Name Dose Route Start Last Admin Trade Name Freq PRN Reason Stop Dose Admin Lidocaine HCl 5 ml 09/29/18 07:44 Lidocaine Hcl 1% Sdv SUBCUT 09/29/18 07:45 ONCE STA Vital Signs: Temp Pulse Resp BP Pulse Ox 09/29/18 06:55 98.2 F 86 20 111/77 95 Departure - Departure Time of Disposition: 08:14 Disposition: HOME HEALTH SERVICE Discharge Problem: Scalp laceration Instructions: Staple Care (ED) Condition: Good Pt referred to PMD for follow-up: No (folow with ER or PCP for suture&staple removal) IPMP verified?: No Additional Instructions: Augmentin tab 875/125 bid x 7 days SUTURE AND STAPLE REMOVAL IN & DAYS.AVOID SCALP WETTING x 3 DAYS.THAN PROTECT IF WASHED UNTIL MARIE REMOVED. Allergies/Adverse Reactions: Allergies No Known Allergies Allergy (Verified 03/23/17 16:26) Home Medications: Ambulatory Orders Citalopram Hydrobromide [Celexa] 20 mg PO DAILY 03/31/15 Divalproex Sodium 500 mg PO BID 03/31/15 Docusate Sodium [Colace] 200 mg PO BEDTIME 03/31/15 Ranitidine HCl [Zantac] 150 mg PO BID 03/31/15 Benztropine Mesylate 0.5 mg PO BID 03/23/17 Diazepam [Valium] 2 mg PO TID 03/23/17 Ziprasidone HCl [Geodon] 40 mg PO BID 03/23/17 Clindamycin HCl [Cleocin HCl] 300 mg PO TID #9 capsule 03/27/17 Insulin Lispro [Humalog] 5 - 15 units SQ AC PRN 03/27/17 Disposition Discussed With: Patient, Other
[2018-09-29] MEDS ORDERED: LIDOCAINE HCL 1% SDV ONE (07:47)
[2018-09-29] MEDS: LIDOCAINE HCL 1% SDV SUBCUT STA ×2 (08:17→08:23)
[2018-09-29] MEDS ORDERED: XYLOCAINE MPF 1% INJ PRN (08:19)
[2018-09-29] MEDS ORDERED: LIDOCAINE HCL 1% SDV SUBCUT STA (08:20)
== END 2018-09-29 08:44 | disposition home or self-care (01) ==
LOC: ED 06:54
DX: S01.01XA Laceration without foreign body of scalp, initial encounter (principal); W45.8XXA Other foreign body or object entering through skin, initial encounter; F79 Unspecified intellectual disabilities
CPT/HCPCS: 99283

== ENCOUNTER 2019-01-09 18:03 | Emergency (ER) | payer OTHER ==
[2019-01-09 18:12] VITALS: BMI 31.4
[2019-01-09 18:15] VITALS: BP 106/71; TEMP 97.4
[2019-01-09] MEDS ORDERED: ALBUTEROL 0.083% NEB NEB STA (18:34)
--- NOTE | 2019-01-09 18:42 | ED.PDOC ---
General Stated Complaint: CC : Cough and congestion . HPI : Healthcare worker accompanying patient stated she beleive he attempted to swallow large bolus of food and got Choked on food at dinner; Required several back thrusts and coughed up considerable secretions followed by ad N-V. The aide was concerned about aspiration. Patient is developmentally disabled requiring considerable care, is non verbal and often non cooperativ. Time Seen by Physician: 18:25 Mode of Arrival: Wheelchair Information Source: Patient Exam Limitations: Clinical condition, Altered mental status Nursing and Triage Documentation Reviewed and Agree: Yes Does patient meet sepsis criteria?: No System Inflammatory Response Syndrome: Not Applicable <MARILEE PEREIRA - Last Filed: 01/09/19 21:41> <SHAN MOTA - Last Filed: 01/10/19 06:22> ED Provider: Dr. SHAN MOTA Chief Complaint: Non-specific Complaint Primary Care Provider: NIC WOODSON Sepsis Protocol: For patient's 13 years and over: Temp is 96.8 and below OR 101 and greater Pulse >90 BPM Resp >20/minute Acutely Altered Mental Status Are patient's symptoms suggestive of a new infection, such as: -Pneumonia -Skin, Soft Tissue -Endocarditis -UTI -Bone, Joint Infection -Implantable Device -Acute Abdominal Infection -Wound Infection -Meningitis -Blood Stream Catheter Infection -Unknown Respiratory Complaint Exam - FB Ingestion/Aspiration Complaint/Exam Onset/Duration: 1 hr Witnessed: Yes Ingestion/Aspiration: Foreign body (Food) Character: Reports: Oral, Inhalation Aggravating: Swallowing Alleviating: Reports: Back blows Associated Signs and Symptoms: Reports: Choking episode, Drooling, Vomiting, Cough, Short of air Related History: Reports: Similar episode Complicated Foreign Body Risk Factors: Reports: None Respiratory Distress: Mild Speech: Unable to speak Hoarseness Present: No Stridor Present: No Drooling Present: Yes Gag Reflex Present: Yes Inability to Swallow: No Differential Diagnoses: Aspiration of Solid, Aspiration of Liquid Quality Indicators For Pneumonia: Blood Cultures-SCU admit, Empiric Antibiotic Rx <MARILEE PEREIRA - Last Filed: 01/09/19 21:41> Review of Systems - Review Of Systems Constitutional: Reports: No symptoms Eyes: Reports: No symptoms Ears, Nose, Mouth, Throat: Reports: No symptoms Respiratory: Reports: Cough, Short of air, Wheezing Cardiac: Reports: No symptoms GI: Reports: No symptoms : Reports: No symptoms Musculoskeletal: Reports: No symptoms Skin: Reports: No symptoms Neurological: Reports: Cognitive dysfunction Endocrine: Reports: No symptoms Hematologic/Lymphatic: Reports: No symptoms All Other Systems: Reviewed and Negative <KELLIMARILEE - Last Filed: 01/09/19 21:41> Past Medical History - Past Medical History Previously Healthy: Yes Endocrine: Reports: None Cardiovascular: Reports: None Respiratory: Reports: None Hematological: Reports: None Gastrointestinal: Reports: None Genitourinary: Reports: None Neuro/Psych: Reports: None, Other (MENTAL RETARDATION) Musculoskeletal: Reports: None Cancer: Reports: None - Surgical History General Surgical History: Reports: Unknown - Family History Family History: Reports: Unknown - Social History Smoking Status: Never smoker Hx Substance Use: No Alcohol Screening: None - Immunizations Tetanus Shot up to Date: No <MARILEE PEREIRA - Last Filed: 01/09/19 21:41> Physical Exam - Physical Exam Appearance: Ill-appearing, Thin Ill-appearing: Moderate Pain Distress: None Eyes: YOLI, EOMI, Conjunctiva clear ENT: Ears normal, Nose normal, Oropharynx normal Neck: Supple Respiratory: Breath sounds diminished, Airway obstructed, Rhonchi, Wheezes (Rt anterior and posterior) Cardiovascular: RRR, Pulses normal, No rub, No murmur GI/: Soft, Nontender, No masses, Bowel sounds normal, No Organomegaly Musculoskeletal: Normal strength, ROM intact, No edema, No calf tenderness Skin: Warm, Dry, Normal color Neurological: Sensation intact, Motor intact, Cranial nerves intact, Alert to verbal, Alert to pain Psychiatric: Anxious <MARILEE PEREIRA - Last Filed: 01/09/19 21:41> Interpretation - Radiology Interpretation Radiology Interpretation By: Radiologist Radiology Results: Positive Exam Interpreted: CXR (rt basilar congestion /opacities) <MARILEE PEREIRA - Last Filed: 01/09/19 21:41> Re-Evaluation - Re-Evaluation Time of Re-Evaluation: 19:25 Status: Improved Vital Signs Stable: Yes Appearance: NAD Lungs: Other (Rt ant /posterior wheezing but improved) CV: RRR <MARILEE PEREIRA - Last Filed: 01/09/19 21:41> Physician Notification - Case Discussed Physician Notified: Dr Mota Time of Notification: 20:55 (Monitor through discharge) <MARILEE PEREIRA - Last Filed: 01/09/19 21:41> Critical Care Note - Critical Care Note Total Time (mins): 60 <MARILEE PEREIRA - Last Filed: 01/09/19 21:41> Course - Course Hematology/Chemistry: 01/09/19 18:53 01/09/19 19:00 <MARILEE PEREIRA - Last Filed: 01/09/19 21:41> - Course Hematology/Chemistry: 01/09/19 18:53 01/09/19 19:00 <JENNYCATINASHAN - Last Filed: 01/10/19 06:22> - Course Orders, Labs, Meds: Lab Review 01/09/19 01/09/19 01/09/19 18:53 18:53 19:00 WBC 5.26 RBC 3.33 L Hgb 10.7 L Hct 32.9 L MCV 98.8 H MCH 32.1 H MCHC 32.5 RDW Coeff of [place] 12.9 Plt Count 92 L Immature Gran % (Auto) 0.4 Neut % (Auto) 42.9 Lymph % (Auto) 45.6 [place] % (Auto) 9.3 Eos % (Auto) 1.0 Baso % (Auto) 0.8 Immature Gran # (Auto) 0.0 Neut # (Auto) 2.3 Lymph # (Auto) 2.4 [place] # (Auto) 0.5 Eos # (Auto) 0.1 Baso # (Auto) 0.0 Sodium 140.7 Potassium 4.10 Chloride 107.2 H Carbon Dioxide 25.5 Anion Gap 12.10 BUN 25.2 H Creatinine 1.35 H Estimated GFR (MDRD) 57.00 BUN/Creatinine Ratio 18.66 Glucose 94.3 Lactic Acid Calcium 8.67 Total Bilirubin 0.25 AST 41.2 ALT 22.8 Alkaline Phosphatase 63.2 Troponin I < 0.012 Total Protein 6.78 Albumin 3.88 Globulin 2.90 Albumin/Globulin Ratio 1.33 Procalcitonin 01/09/19 01/09/19 19:00 19:41 WBC RBC Hgb Hct MCV MCH MCHC RDW Coeff of [place] Plt Count Immature Gran % (Auto) Neut % (Auto) Lymph % (Auto) [place] % (Auto) Eos % (Auto) Baso % (Auto) Immature Gran # (Auto) Neut # (Auto) Lymph # (Auto) [place] # (Auto) Eos # (Auto) Baso # (Auto) Sodium Potassium Chloride Carbon Dioxide Anion Gap BUN Creatinine Estimated GFR (MDRD) BUN/Creatinine Ratio Glucose Lactic Acid 1.08 Calcium Total Bilirubin AST ALT Alkaline Phosphatase Troponin I Total Protein Albumin Globulin Albumin/Globulin Ratio Procalcitonin < 0.05 Orders Category Date Time Status EKG-(ED ONLY) Stat CARDIO 01/09/19 18:36 Completed NEBULIZER TREATMENT Stat CARDIO 01/09/19 18:35 Completed OXYGEN Routine CARDIO 01/09/19 20:29 Completed IV [ED IV/MEDIPORT/POWERPORT] .ONCE EMERGENCY 01/09/19 18:37 Active BLOOD CULTURE (ED ONLY) Stat LAB 01/09/19 19:41 Received CBC W/ AUTO DIFF Stat LAB 01/09/19 18:53 Completed CMP [COMPREHENSIVE METABOLIC PANEL] Stat LAB 01/09/19 19:00 Completed LACTIC ACID Stat LAB 01/09/19 19:41 Completed PROCALCITONIN Stat LAB 01/09/19 19:00 Completed TROPONIN I Stat LAB 01/09/19 18:53 Completed 0.9 % Sodium Chloride [Saline Flush] MEDS 01/09/19 18:37 Discontinued 1 syr IVF PRN PRN Albuterol Sulfate 0.083% Neb [Albuterol 0.083% Neb] MEDS 01/09/19 18:34 Discontinued 1 vial NEB ONCE STA Amoxicillin/Potassium Clav [Augmentin 250-62.5/5 Susp] MEDS 01/09/19 21:39 Discontinued 500 mg PO ONCE STA Ceftriaxone Sodium [Rocephin] MEDS 01/09/19 19:25 Discontinued 1 gm IM ONCE STA Lidocaine HCl/Pf [Lidocaine HCl 1% Sdv] MEDS 01/09/19 19:25 Discontinued 2.1 ml IM ONCE STA CHEST, 1V AP ONLY Stat RADS 01/09/19 18:35 Completed Medications Discontinued Medications Generic Name Dose Route Start Last Admin Trade Name Freq PRN Reason Stop Dose Admin Albuterol Sulfate 1 vial 01/09/19 18:34 01/09/19 18:38 Albuterol 0.083% Neb NEB 01/09/19 18:35 1 vial ONCE STA Administration Amoxicillin/Clavulanate Potassium 500 mg 01/09/19 21:39 01/09/19 21:50 Augmentin 250-62.5/5 Susp PO 01/09/19 21:40 Not Given ONCE STA Ceftriaxone Sodium 1 gm 01/09/19 19:25 01/09/19 19:53 Rocephin IM 01/09/19 19:26 1 gm ONCE STA Administration Lidocaine HCl 2.1 ml 01/09/19 19:25 01/09/19 19:53 Lidocaine Hcl 1% Sdv IM 01/09/19 19:26 2.1 ml ONCE STA Administration Sodium Chloride 1 syr 01/09/19 18:37 Saline Flush IVF PRN PRN To flush IV Vital Signs: Temp Pulse Resp BP Pulse Ox 01/09/19 19:41 100 01/09/19 18:04 97.4 F L 79 20 106/71 85 L Departure - Departure Time of Disposition: 19:45 <MARILEE PEREIRA - Last Filed: 01/09/19 21:41> - Departure Time of Disposition: 22:40 Pt referred to PMD for follow-up: Yes IPMP verified?: No <SHAN MOTA - Last Filed: 01/10/19 06:22> - Departure Disposition: HOME SELF-CARE Discharge Problem: Bronchitis Condition: Good Additional Instructions: give antibiotics as prescribed Return if worse Prescriptions: Amoxicillin/Potassium Clav [Augmentin 250-62.5/5 Susp] 500 mg PO Q8HR #300 ml Albuterol Sulfate [Albuterol Sulfate Hfa] 2 inh IH QID #1 hfa.aer.ad Amoxicillin/Potassium Clav [Augmentin 250-62.5/5 Susp] 500 mg PO BID #200 ml Allergies/Adverse Reactions: Allergies No Known Allergies Allergy (Verified 01/09/19 18:12) Home Medications: Ambulatory Orders Citalopram Hydrobromide [Celexa] 20 mg PO DAILY 03/31/15 Divalproex Sodium 500 mg PO BID 03/31/15 Docusate Sodium [Colace] 200 mg PO BEDTIME 03/31/15 Ranitidine HCl [Zantac] 150 mg PO BID 03/31/15 Benztropine Mesylate 0.5 mg PO BID 03/23/17 Diazepam [Valium] 2 mg PO TID 03/23/17 Ziprasidone HCl [Geodon] 40 mg PO BID 03/23/17 Albuterol Sulfate [Albuterol Sulfate Hfa] 2 inh IH QID #1 hfa.aer.ad 01/09/19 Amoxicillin/Potassium Clav [Augmentin 250-62.5/5 Susp] 500 mg PO BID #200 ml Amoxicillin/Potassium Clav [Augmentin 250-62.5/5 Susp] 500 mg PO Q8HR #300 ml Ferrous Sulfate 325 mg PO DAILY 01/09/19 Mirtazapine 15 mg PO DAILY 01/09/19 Ziprasidone HCl 80 mg PO DAILY 01/09/19 Zolpidem Tartrate 5 mg PO DAILY 01/09/19 <MARILEE PEREIRA - Last Filed: 01/09/19 21:41> <SHAN MOTA - Last Filed: 01/10/19 06:22> Additional Information: Patient has remained stable since tx administed after admitted. Oxygen changed to nasal canula and sats remained 96-98 % Place on room air and sats remained 95-96 % with easy non labored breathing. Dose of antibiotics for home in am due to inability of home to get meds in AM ( MARILEE PEREIRA)
--- NOTE | 2019-01-09 19:02 | DI ---
Exam: Chest one-view History: Possible aspiration FINDINGS: Normal cardiomediastinal contours. Normal pulmonary vasculature. Vague reticular opaciti es in the right base. No consolidative change. No additional parenchymal opacities. No chest wall abnormality. Impression: Right basilar reticular opacities accentuated by diminished lung volumes. Cannot exclud e pneumonitis. No consolidative opacities.
[2019-01-09] MEDS ORDERED: ROCEPHIN IM STA (19:25)
[2019-01-09] MEDS ORDERED: LIDOCAINE HCL 1% SDV IM STA (19:25)
[2019-01-09] MEDS ORDERED: AUGMENTIN 250-62.5/5 SUSP PO STA (21:39)
== END 2019-01-09 22:45 | disposition home or self-care (01) ==
LOC: ED 18:03
DX: J40 Bronchitis, not specified as acute or chronic (principal); F79 Unspecified intellectual disabilities; Z79.899 Other long term (current) drug therapy
CPT/HCPCS: 36415; 80053; 83605; 84145; 84484; 85025; 87040; 93005; 93010; 94640; 96372; 99284

== ENCOUNTER → 2019-03-12 | Outpatient (CLI) | payer OTHER | LOC: LAB 09:38 | PROVIDERS: ATTEND Nurse Practitioner Family | DX: D64.9 Anemia, unspecified (principal) | CPT/HCPCS: 36415; 83540; 83550 ==